=== PATIENT | male | born 1960 | race Caucasian/White ===

== ENCOUNTER 2017-11-15 15:36 | Emergency (ER) | payer SELFPAY ==
[2017-11-15 15:22] VITALS: BP 146/86; PULSE 64; RESP 18; TEMP 36.5; O2SAT 100; BMI 26.6
--- NOTE | 2017-11-15 15:37 | CT_ITS ---
STUDY: CT ABDOMEN AND PELVIS WITHOUT CONTRAST REASON FOR EXAM: Male, 57 years old. Left flank pain. RADIATION DOSAGE (If Supplied By Facility): CTDIvol = ( 9.26 ) mGy, DLP = ( 474.47 ) mGycm TECHNIQUE: Transaxial images were obtained from the dome of the diaphragm to the symphysis pubis without oral contrast, and without intravenous contrast. Sagittal and coronal images were reconstructed. Individualized dose optimization techniques were used for this CT. COMPARISON: None. FINDINGS: The visualized lung bases are unremarkable. The visualized portions of the heart are within normal limits. Normal liver. Normal gallbladder and extrahepatic biliary system. Normal spleen. Normal pancreas. Normal bilateral adrenal glands. Both kidneys show several small stones. On the right there is a 2 mm nonobstructing lower pole stone. There is a 1 mm nonobstructing stone in renal stone. There is a 2 mm nonobstructing upper pole stone. On the left there is a 1 mm nonobstructing lower pole stone. There is mild hydronephrosis. There is mild left hydroureter with prominent periureteral stranding. There is a 3 mm obstructing stone of the distal left ureteral stone seen on axial image 147. Evaluation of the GI tract is limited by absence of oral contrast. Cannot exclude stomach wall thickening. No dilated loops of bowel or evidence for obstruction. Cannot exclude segmental thickening of the robin of the small or large bowel. Cannot exclude enteritis or colitis. Cannot exclude rectal wall thickening Moderate diffuse fecal retention. Diverticulosis without definite diverticulitis. Appendix within normal limits. Normal abdominal aorta. Normal inferior vena cava. Normal retroperitoneum. Normal urinary bladder contour. 3 mm distal left ureteral stone. There is enlargement of the prostate gland. Normal abdominal wall. Degenerative disc disease at T11-T12 and bilateral hip arthroplasties. CT/Abdomen/Pelvis without Cont IMPRESSION: There is mild left hydroureter with prominent periureteral stranding related to a 3 mm obstructing stone of the distal left ureteral stone seen on axial image 147. Several additional nonobstructing bilateral renal stones. Electronically Signed: Matheus Atkinson MD at 17:24 EST , Service support ,
--- NOTE | 2017-11-15 15:38 | ED.DCSUM_ITS ---
- ER Visit Summary Date of Service: 11/15/17 Chief Complaint: Back pain History of Present Illness: The patient is a 57 M who presents with left-sided flank pain. Started this morning when he woke up. He describes sharp pains in the flank that radiates to his left groin. Nothing makes the pain better or worse. He did note some dysuria today as well. He has a history of kidney stones 5-6 years ago. He took no medications for this at home. He did have some nausea this morning. Denies seeing any blood Physical Examination: Vital signs reviewed. HEENT exam unremarkable. Heart is regular rate and rhythm without murmurs. Lungs are clear to auscultation. Abdomen is soft and nontender. Extremities reveal no edema. Skin exam normal. Neurologic exam normal. Test ResultsLaboratory studies show white blood cell count of 11.3, urinalysis does show blood. CAT scan reveals a 3 mm stone in the left distal ureter. There is mild hydronephrosis Emergency Department Course and Treatment: Patient was treated with Toradol and Zofran. Upon reevaluation he is symptomatically improved. Kidney stone is likely the cause of the symptoms. He will go home with a short course of [place] as well as naproxen for pain. He will increase hydration will follow up with his PCP Treatment Plan: [] Disposition: Discharge Impression: Ureterolithiasis This note was generated with Att[employer] dictation software. It may contain incorrect words, spelling, and punctuation that were not noted in review of the chart prior to signing ED Disposition - Plan for ED Patient: Chief Complaint: Back Referrals: Sonido Khanna [Primary Care Provider] -
[2017-11-15 16:24] LABS: Anion Gap 9 (5-15); BUN 20 mg/dL (7-18); BUN/Creat Ratio 17.5 RATIO (10-20); Calcium,Total 8.9 mg/dL (8.5-10.1); Chloride 103 mmol/L (98-107); Creatinine, Serum 1.14 mg/dL (0.70-1.30); EST Glomerular Filtration Rate 70 mL/min (>60); Est Glom Filt Rate - Afr Amer 85 mL/min (>60); Estimated Creatinine Clearance 70.63 ml/min; Glucose 119 mg/dL (74-106); Potassium 4.3 mmol/L (3.5-5.1); Sodium Level 140 mmol/L (136-145)
[2017-11-15] MEDS: Ondansetron 4 MG/2 ML Vial IV (16:48)
[2017-11-15] MEDS: Ketorolac 30 MG/ML Syringe IV (16:48)
[2017-11-15 17:24] LABS: Absolute Lymphocyte Count 0.69 X10^3/ul (0.83-4.51); Absolute Neutrophil Count 10.2 X10^3/uL (2.0-7.7); Eosinophil# 0.03 X10^3/uL; Eosinophils% 0.3 % (0-5); Hematocrit 44.4 % (40-54); Hemoglobin 15.2 g/dl (13.0-16.5); Lymphocyte # 0.69 X10^3/ul (4.0); Lymphocyte % 6.1 % (19-41); Mean Corp Hgb Conc 34.2 g/gl (32-36); Mean Corpuscular Hgb 28.7 pg (27.0-32.0); Mean Corpuscular Volume 83.9 fL (80-94); Mean Platelet Vol. 9.1 fl (6.2-12.0); Monocyte# 0.38 X10^3/uL; Monocyte% 3.4 % (0-10); Neutrophil # 10.19 X10^3/uL (2.7-7.7); Neutrophil % 90.1 % (47-70); POSITIVE COUNT NO; POSITIVE DIFFERENTIAL NO; POSITIVE MORPHOLOGY NO; Platelet Count 148 K/mm3 (150-450); RBC Distribution Width CV 13.5 % (11.6-14.6); RBC Distribution Width SD 40.8 fl (35.1-43.9); Red Blood Count 5.29 M/mm3 (4.6-6.2); White Blood Count 11.3 K/mm3 (4.4-11.0)
[2017-11-15 18:21] LABS: Color, Urine Yellow (Yellow); Glucose, Dipstick Normal (Normal); Ketone-Dipstick 50 mg/dl (Negative); Leukocyte Esterase-Dipstick Negative /ul (Negative); Nitrite-Dipstick Negative (Negative); Occult Blood-Urine 150 /ul (Negative); Protein-Dipstick Negative (Negative); Specific Gravity, Urine 1.025 (1.002-1.030); Urine Bilirubin Dipstick Negative (Negative); Urine Clarity Clear (Clear); Urine Urobilinogen Normal (Normal)
[2017-11-15 18:29] LABS: Red Blood Cells-Urine 10-25 SEEN /hpf (0-5)
[2017-11-15 18:30] LABS: Bacteria RARE /hpf (None Seen); Mucous, Urine 2+ /hpf (<or=2+); Squamous Epithelial Cells - UA 0-5 SEEN /hpf (0-5); White Blood Cells 0-5 SEEN /hpf (0-5)
--- NOTE | 2017-11-15 18:41 | ED.DEP ---
ED Disposition - Plan for ED Patient: Disposition: Home or Assisted Living Chief Complaint: Back Instructions: ED Stone Renal W Colic Prescriptions: Hydrocodone Bitart/Apap 5-325 [[place] 5/325] 1 - 2 tab PO Q6H PRN PRN 4 Days #10 tab PRN Reason: Pain Naproxen [Naprosyn] 500 mg PO BID PRN #20 tab Referrals: Sonido Khanna [Primary Care Provider] -
[2017-11-15 19:01] VITALS: BP 149/69; PULSE 80; RESP 16; O2SAT 98
== END 2017-11-15 19:01 | disposition home or self-care (01) ==
PROVIDERS: Emergency Provider Emergency Medicine; Family Provider Family Medicine; PCP Family Medicine
DX: N13.2 Hydronephrosis with renal and ureteral calculous obstruction (principal); Z87.442 Personal history of urinary calculi
CPT/HCPCS: 74176; 80048; 81001; 85025; 96374; 96375; 99285; A4216; J2405

== ENCOUNTER 2023-12-22 11:44 | Day surgery (SDC) | payer SELFPAY ==
[2023-12-22] VITALS (12 sets, daily range): BP systolic 129–179; BP diastolic 74–98; PULSE 67–97; RESP 16–18; TEMP 36.2–37.6; O2SAT 93–100; BMI 26.6
--- NOTE | 2023-12-22 11:57 | EKG12_ITS ---
Test Reason : PRE OP Blood Pressure : / mmHG Vent. Rate : 075 BPM Atrial Rate : 075 BPM P-R Int : 164 ms QRS Dur : 082 ms QT Int : 380 ms P-R-T Axes : 034 038 042 degrees QTc Int : 424 ms Normal sinus rhythm Normal ECG No previous ECGs available Confirmed by Britton Dillard ([id number]), book editor KENJI BETHEA ([id number]) on 12/24/2023 11:24:14 AM Referred By: Sonido Khanna Confirmed By:Britton Dillard
[2023-12-22] MEDS: Lactated Ringers 1,000 ML 15 ML IV (12:19)
--- NOTE | 2023-12-22 13:48 | HP.PCM_ITS ---
History and Physical Date of Admission: 12/22/23 Date of Service: 12/16/23 MR#: [id number] Acct: [id number] Name: ADALID JONES Rep #: [id number] : 1960 Provider: Dr. Britton Ayala MD Age/Sex: 63/M Location: [facility] Status: Signed Intake Vital Signs 12/15/2408:38 Height 5 ft 9 in Weight: 186 lb BMI 27.4 BP 167/91 H Blood Pressure Location Rt brachial Position Sitting Respiration 17 Pulse 95 Pulse Source Monitor Temp 96.6 F L Temp Source Temporal Pulse Oximetry (%) 99 Oxygen Delivery Method room air Intake Visit Reasons: R INGUINAL HERNIA Chief Complaint: right inguinal hernia Is patient in pain?: No Allergies No Known Allergies Allergy (Verified 12/16/23 09:39) Medications naproxen 500 mg tablet 500 mg PO BID PRN #20 tabs 11/15/17 [Rx] saw palmetto 160 mg capsule 600 mg PO DAILY 12/16/23 [History Confirmed 12/16/23] PFSH Surgical History (Updated 12/16/23 @ 09:37 by Yuki Birmingham) H/O bilateral hip replacements H/O left inguinal hernia repair Family History (Updated 12/16/23 @ 09:37 by Yuki Birmingham) Mother Breast cancerSister Hypertension Social History (Updated 12/16/23 @ 09:41 by Yuki Birmingham) Smoking Status: Never smoker alcohol intake: never substance use type: does not use additional social history: takes Hemp gummie daily HPI HPI HPI: Patient is a 63-year-old male who presents for surgical consultation related to a right inguinal hernia. He is referred from Dr. Khanna. He presents today with his . He shares and is unable to recall a singular inciting event, however, estimates that this hernia has been present for the last 3 to 4 years. He shares it is simply gotten worse and by this states that it does not stay in. He goes on to confirm that it is not causing him any significant pain. He shares that a few times it has been hard to reduce. He also confirms that this hernia has had no impact to his bowel function. He has a history of a open left inguinal hernia repair with mesh performed by Dr. Ganesh streeter in [facility] in 2010. This represents his only prior abdominal surgical history. He confirms that he is not taking any blood thinners. He has no history of staph infections. He is working for [employer] where there is some physical demand as part of his job and stays pretty active with yard work and splitting wood. ROS General General: No weight change, appetite, fatigue, colon cancer, breast cancer or weakness HEENT HEENT: No difficulty swallowing, eye injury, eye surgery, swollen glands or hoarseness Endo Endocrine: No thyroid disease, diabetes mellitus, thyroid cancer, Hair loss, heat intolerance or cold intolerance Skin Skin: No rash or changing moles Musc Musculoskeletal: No back problems, arthritis, rheumatoid arthritis, gout or joint pain Cardio Cardiovascular: No murmur, pacemaker, heart disease, atrial fibrillation, high blood pressure, heart attack, heart stent, palpitations, shortness of breat with exertion or chest pain Psych Psychiatric: No depression, anxiety or hearing voices Resp Respiratory: No shortness of breath, No sleep apnea, No cough, No COPD, No asthma, No emphysema and No wheezing Gastro Gastrointestinal: No abdominal pain, No nausea or vomiting, No diarrhea, No constipation, No blood in stool, No acid reflux, Yes hemorrhoids, No ulcers, No gallbladder problem and No black,tarry stools To Hematologic: No blood thinners, No blood disorders, No bleeding, No anemia and No blood clots Neuro Neurologic: No system reviewed and no additional complaints, except as documented, No as per HPI, No abnormal gait, No abnormal hearing, No abnormal movements, No abnormal speech, No behavioral changes, No burning sensations, No confusion, No convulsions, No disequilibrium, No dizziness, No localized weakness, No frequent falls, No headache(s), No lack of coordination, No loss of vision, No memory loss, Yes numbness, No other visual disturbances, No radicular pain, No restless legs, No sensory deficit, No syncope, Yes tingling, No tremor(s), No weakness and No other Exam Const General: cooperative and anxious Orientation: alert, awake and oriented x3 Resp Effort & Inspection: normal respiratory effort GI Other: No scars, nondistended, soft, nontender to palpation Other: Bilaterally descended testicles. Obvious scar across the left groin is well- healed. Significant bulges palpated on the right and appears to be consistent with an indirect defect that bulges more when patient is asked to bear down cough. Assessment and Plan Assessment and Plan (1) Right inguinal hernia: Status: Chronic Comment: Patient is a 63-year-old male who presents for a growing right inguinal hernia that is largely nontender. He is interested in having it repaired sooner than later given the increasing size of the bulge that he perceives. He does have a history of a prior inguinal hernia repair on the left that was done in an open fashion with mesh in 2010. This repaired appears to be intact. On exam, however, I do find evidence of a moderately large indirect hernia on the right. Given his absence of other prior abdominal surgery and reported high level of activity, I have recommended we consider a minimally invasive repair with mesh for the right side. After describing the procedure in detail?including postoperative activity restrictions of no more lifting than 10 pounds for 5 weeks?patient states that he would like to proceed as soon as we are able. He appears to be otherwise clinically fit and I would simply like to proceed with a MRSA screening of the nares before scheduling. Plan: ? Follow-up MRSA swab ? Robot-assisted right (possible bilateral) inguinal hernia repair with mesh to be performed with outpatient disposition Orders: Orders MRSA/SAID SCREEN (PRE SURG) Today K40.90 - Unilateral inguinal hernia, without obstruction or gangrene, not specified as recurrent, Z01.818 - Encounter for other preprocedural examination I have examined the patient the following changes are noted: Patient was Staph aureus positive?MRSA negative?and thus was prescribed mupirocin and Hibiclens. He confirms that he abided by these directions over the last 4 days. Further, he denies any new health updates and confirms that he is ready to proceed with activity restrictions as previously discussed. Will now proceed to the operating room for robot-assisted right inguinal hernia repair with mesh as discussed in greater detail above.
[2023-12-22] MEDS: Cefazolin 2 GM in 0.9% Normal Saline (100mL Bag) 100 ML IV (13:53)
--- NOTE | 2023-12-22 15:32 | PCM.OPRPT ---
Report of Operation Date of Procedure: 12/22/23 Pre-Operative Diagnosis: Right inguinal hernia Post-Operative Diagnosis: Right direct?type inguinal hernia Surgery/Procedure Performed:: Robot-assisted right inguinal hernia repair with mesh Description of Surgical Findings:: ? Moderately large direct?type right inguinal hernia containing fat ? Small right cord lipoma Surgeon: Britton Ayala Type of Anesthesia: General/Supplemental Anesthesiologist: Gurdeep Leon Specimen's removed: None Estimated Blood Loss (mL): 5 Description of Procedure: After appropriate identification in the preoperative holding area the patient was brought to the operating room where he was positioned supine on the operating table. Preoperative antibiotics were completed and the patient was administered a general anesthetic. Patient's abdomen was then prepped and draped in usual sterile fashion. Formal timeout followed to confirm patient and procedure. Procedure was begun with an optical entry facilitated by Veress insufflation at Khan's point. Once pneumoperitoneum reached a set point pressure of 15 mmHg the Veress needle was withdrawn and an optical entry was made with a robotic trocar. Laparoscopic visualization confirmed no inadvertent injury to the viscera below and 2 additional ports were placed in the right upper quadrant and paramedian positions, respectively, after instillation of local anesthetic. Patient was positioned in slight Trendelenburg and I performed a local block of the right ilioinguinal nerve using 4 mL local anesthetic under laparoscopic visualization. A peritoneal defect was clearly discernible on the right, however, there did not appear to be any hernia defect on the left where I could visualize the presence of a previously?placed mesh. The robot was docked in standard fashion. Robotically, a peritoneal flap was created on the right extending from the medial umbilical ligament to the level of the ASIS (external) and was bluntly dissected inferiorly to expose the medial parietal compartment and lateral visceral compartments. Medially I encountered a direct hernia sac containing fat that was teased away from the attenuated transversalis fascia until it was fully reduced. Upon reduction, I could visualize the pubic tubercle and Truong's ligament while laterally I extended the dissection down to the level of the psoas musculature. No indirect hernia sac was encountered. A small cord lipoma was identified and removed with monopolar energy. The peritoneal flap was inspected to ensure that cord was appropriately parietalized and there was no pulling of the cord structures or the viscera deeply over the psoas using the pull test. Once satisfied, a Contact At Once! 3D max, size large, mid weight mesh was placed into the abdomen along with suture. Patient's direct hernia defect was closed down in a running fashion using #1 STRATAFIX suture that was then run back upon itself. After defect closure the mesh was positioned within the preperitoneal pocket so that there was good medial and inferior overlap. It was then tacked to Truong's ligament as well as the adminiculum of the linea alba just superior to the pubic tubercle, medially, and laterally in a partial-thickness bite of the abdominal wall using a 3-0 Vicryl suture. The peritoneal flap was then closed with a running 3-0 V-Loc suture taking care to conceal the barbs of the suture beneath the peritoneum. Just prior to completion of the flap closure I instructed my assistant to the president to place a 14-gauge Angiocath through the anterior abdominal wall?taking care to avoid injury to the inferior epigastric vessel?and this catheter was used to evacuate the preperitoneal space of air to ensure there is no curling of the mesh. Once the flap closure was complete, sutures were systematically removed from the peritoneum and the pneumoperitoneum was evacuated before removing the trocars. The port sites were closed at the skin with running 4-0 Monocryl in a subcuticular fashion. Steri-Strips and OpSite's were used as dressings. Patient's testicles were confirmed within the scrotum. Patient was then awoken from anesthetic and transferred to PACU for ongoing recovery. Grafts/Implants Used: Bard 3D max mid anatomic mesh ref [id number], lot [id number] Complications None Procedures Digestive 40xxx-49xxx: 01220 Lap ing hernia repair init
--- NOTE | 2023-12-22 15:35 | DCINST_ITS ---
Discharge Instructions Diet Discharge Diet: No restrictions Activity Discharge Activity: May Not Drive (While taking narcotic pain medication) and May Shower May shower in (days): 2 Ice area for (Minutes): 20 Lifting Restrictions: No lifting greater than 10 pounds for the next 5 weeks Dressing / Incision Call your doctor if your incision/area has: Continuous Slow Oozing, Increased Pain/ Swelling, Increased Redness, Foul Smelling Discharge and Swelling at the incision site Call your doctor if you observe: Fever of 101 or Higher, Inability to urinate and Inability to have a bowel movement Change Dressing in: 2 days (Please leave Steri-Strips intact until they fall off spontaneously or are taken off at your follow-up visit) Remove Dressing in: 2 days Cleanse incision/area with: Soap & Water and Keep Dressing Clean & Dry Follow Up Care Please Follow Up With: Britton Ayala MD When: 10 to 14 days postop Test Results: Test results from this visit will be discussed in further detail at your follow- up appointment, if applicable. Discharge Plan Admission Primary Reason for Your Visit: Inguinal hernia repair Attending Provider: Britton Ayala Primary Care Provider: Sonido Khanna Discharge Orders/Prescriptions Prescriptions: New oxycodone 5 mg tablet 5 mg PO Q6H PRN (Reason: pain) 3 Days Qty: 10 0RF Continued saw palmetto 160 mg capsule 600 mg PO DAILY Rx Instructions: give with meal/snack hemp gummy 500 mg PO BID mupirocin 2 % ointment 1 applic topical BID 7 Days Qty: 15 0RF Rx Instructions: Apply with q tip to bilateral nares twice daily x 1 week Referrals / Follow Up: Sonido Khanna DO [Primary Care Provider] - Disposition Disposition (needs filled in before D/C Order can be placed): Home, Self Care
[2023-12-22] MEDS: Bupivacaine Mpf 0.5% 30 ML VIAL (15:39)
== END 2023-12-22 20:02 | disposition home or self-care (01) ==
LOC: SDC 11:45 → AC 11:47
PROVIDERS: PCP Family Medicine; Referring Provider Family Medicine; Visit Provider Surgery
PROC: (CPT 49650; principal; 2023-12-22 13:00)
DX: K40.90 Unilateral inguinal hernia, without obstruction or gangrene, not specified as recurrent (principal); D17.6 Benign lipomatous neoplasm of spermatic cord; Z87.19 Personal history of other diseases of the digestive system
CPT/HCPCS: 49650; S2900; 00840; 87077; 87081; 93005; J7120; J2405